=== PATIENT | female | born 1960 | race Caucasian/White ===

== ENCOUNTER → 2020-10-14 | Outpatient (CLI) | payer MEDICARE, MEDICAID ==
[~2020-10-14] MED LIST: ACAM333T7 PO; AMOX1TAB64 PO; ARIP10TA33 PO; DIAZ10TA4 PO; DIAZ1KIT; GABA800T5 PO; HYDR1TAB53 PO; HYDR25PO5; HYDR4TAB PO; LEVO112T2; LITH450T PO; METH-640 PO; METR-90 PO; NORT50CA52 PO; PANT40TA6 PO; POTA20TA91 PO; PROP20TA PO; QUET400T PO; SIMV10TA; SIMV20TA19 PO; TIZA2CAP; ZOLP5TAB2; [UNRECOGNIZED DRUG - CODE]
== END | disposition home or self-care (01) ==
LOC: RAD 09:06
PROVIDERS: ATTEND Internal Medicine Gastroenterology
DX: R11.2 Nausea with vomiting, unspecified (principal); R10.10 Upper abdominal pain, unspecified; R10.31 Right lower quadrant pain; G57.80 Other specified mononeuropathies of unspecified lower limb; R13.19 Other dysphagia
CPT/HCPCS: 76700